=== PATIENT | female | born 1970 | race Caucasian/White ===

== ENCOUNTER → 2023-12-08 10:09 | Outpatient (REF) | payer BC, SELFPAY | LOC: HWWDC 10:09 | PROVIDERS: ATTENDING PHYSICIAN Nurse Practitioner Adult Health; FAMILY PHYSICIAN Family Medicine | DX: Z12.31 Encounter for screening mammogram for malignant neoplasm of breast (principal) | CPT/HCPCS: 77063; 77067 ==

== ENCOUNTER 2024-03-08 06:41 | Day surgery (SDC) | payer OTHER, SELFPAY ==
[2024-03-01 09:55] VITALS: BMI 24.8
[2024-03-08] VITALS (8 sets, daily range): BP systolic 115–136; BP diastolic 70–79; BMI 24.8
[2024-03-08] MEDS: TYLENOL 1000 MG PO (14:24)
[2024-03-08] MEDS: CELEBREX 200 MG PO (14:24)
[2024-03-08] MEDS: ROXICODONE 5 MG PO (18:27)
== END 2024-03-08 19:04 | disposition home or self-care (01) ==
LOC: SDS 06:41
PROVIDERS: ATTENDING PHYSICIAN Specialist; FAMILY PHYSICIAN Family Medicine
DX: S83.242A Other tear of medial meniscus, current injury, left knee, initial encounter (principal); X58.XXXA Exposure to other specified factors, initial encounter; M94.262 Chondromalacia, left knee
CPT/HCPCS: 29881; 36415; 93005

== ENCOUNTER → 2024-12-25 18:02 | Outpatient (REF) | payer OTHER, SELFPAY | LOC: WDC 18:02 | PROVIDERS: ATTENDING PHYSICIAN Nurse Practitioner Adult Health; FAMILY PHYSICIAN Family Medicine | DX: Z12.31 Encounter for screening mammogram for malignant neoplasm of breast (principal) | CPT/HCPCS: 77063; 77067 ==

== ENCOUNTER → 2025-01-08 07:28 | Outpatient (REF) | payer OTHER, SELFPAY | LOC: HWRAD 07:28 | PROVIDERS: ATTENDING PHYSICIAN Family Medicine | DX: E03.9 Hypothyroidism, unspecified (principal); E04.9 Nontoxic goiter, unspecified | CPT/HCPCS: 76536 ==